=== PATIENT | female | born 1995 | race Caucasian/White ===

== ENCOUNTER 2022-09-17 14:52 | Outpatient (OUT) | payer BC, SELFPAY ==
[2022-09-17 15:56] LABS: Estimated Average Glucose 100 mg/dL; Glycohemoglobin A1C 5.1 % (4.5-6.2)
[2022-09-17 15:58] LABS: BOX Test Sent Out Y
[2022-09-17 16:00] LABS: Basophils Percent Auto 0.2 % (0.2-2.0); Eosinophils Absolute Auto 0.2 10^3/uL (0.0-0.7); Eosinophils Percent Auto 1.8 % (0.9-7.0); Hematocrit 36.5 % (36.0-48.0); Hemoglobin 12.3 g/dL (12.0-16.0); Immature Granulocytes Abs Auto 0.06 10^3/uL (0.00-0.03); Immature Granulocytes Pct Auto 0.6 % (0.0-0.5); Lymphocytes Absolute Auto 1.4 10^3/uL (1.2-3.8); Lymphocytes Percent Auto 13.9 % (20.5-60.0); Mean Corpuscular HGB Conc 33.7 g/dL (29.9-35.2); Mean Corpuscular Hemoglobin 29.6 pg (26.7-34.0); Mean Platelet Volume 9.5 fL (9.5-13.5); Monocytes Absolute Auto 0.9 10^3/uL (0.3-0.8); Monocytes Percent Auto 8.7 % (1.7-12.0); Neutrophils Absolute Auto 7.4 10^3/uL (1.4-6.5); Neutrophils Percent Auto 74.8 % (43.0-75.0); Platelet Count 274 10^3/uL (150-450); Red Blood Count 4.15 10^6/uL (4.20-5.40); Red Cell Distribution Width 12.8 % (11.0-15.0); White Blood Count 9.9 10^3/uL (4.0-11.0)
[2022-09-17 16:25] LABS: Thyroid Stimulating Hormone 2.079 uIU/mL (0.358-3.740)
[2022-09-19 07:13] LABS: Rubella Antibodies, IgG 6.19 index (Immune >0.99)
[2022-09-19 08:13] LABS: HIV Ab/p24 Ag Screen Non Reactive (Non Reactive)
[2022-09-19 09:12] LABS: HBsAg Screen Negative (Negative); HCV Ab Non Reactive (Non Reactive)
[2022-09-19 10:08] LABS: Rapid Plasma Reagin, Quant Non Reactive (NonRea<1:1)
[2022-09-23 00:07] LABS: AFP Value 31.8 ng/mL (.); Gest. Age on Collection Date 16.6 weeks (.); Gestat. Age Based On Ultrasound (.); Insulin Dep Diabetes No (.); Maternal Age At EDD 28.2 yr (.); OSBR Risk 1 IN 10000 (.); Results Report (.)
== END 2022-09-17 14:53 | disposition home or self-care (01) ==
LOC: LAB 15:03
PROVIDERS: Visit Provider Obstetrics & Gynecology
DX: Z36.9 Encounter for antenatal screening, unspecified (principal); Z34.92 Encounter for supervision of normal pregnancy, unspecified, second trimester
CPT/HCPCS: 36415; 83036; 84443; 85025; 86592; 86706; 86762; 86803; 86850; 86900; 86901; 87086; 87389